=== PATIENT | male | born 1950 | race Caucasian/White ===

== ENCOUNTER 2017-04-03 16:23 | Outpatient (CLI) | payer MEDICARE, OTHER ==
--- NOTE | 2017-04-04 18:24 | Ultrasound Report ---
DATE OF SERVICE: 04/03/2017 AORTA SCREEN: 04/03/2017 CLINICAL INDICATION: Screening, history of tobacco use. TECHNIQUE: Real-time sonographic vascular imaging was performed by the head sawyer through the abdominal aorta utilizing both color-flow and Doppler spectral analysis. Multiple sales representative publications static images were saved for review. The abdominal aorta is normal in caliber, measuring 2.5 cm proximally, 2.2 cm in the mid portion, and 2.2 cm distally. The iliacs are normal in caliber. No free fluid is present. IMPRESSION: No evidence of an abdominal aortic aneurysm. TD: 04/04/2017 19:24
== END 2017-04-03 16:24 | disposition home or self-care (01) ==
LOC: DI 16:23
PROVIDERS: ATTEND Physician Assistant
DX: Z13.6 Encounter for screening for cardiovascular disorders (principal); Z87.891 Personal history of nicotine dependence
CPT/HCPCS: 76706